=== PATIENT | female | born 1940 | race African-American/Black ===

== ENCOUNTER 2019-08-08 06:22 | Day surgery (SDC) | payer OTHER ==
[2019-08-07 16:48] VITALS: BMI 22.1
[2019-08-08] MEDS ORDERED: BUPIVACAINE HCL/PF 0.5% (5 MG/ML) 30 ML VIAL IJ ONE (07:17)
[2019-08-08] MEDS ORDERED: LIDOCAINE HCL 1%, 10 MG/ML (20ML VIAL) ONE ×2 (07:17→07:56)
[2019-08-08] MEDS ORDERED: MIDAZOLAM HCL 2 MG/2 ML SINGLE DOSE VIAL ONE (07:30)
[2019-08-08] MEDS ORDERED: SUCCINYLCHOLINE CHLORIDE 200 MG/10 ML SYRINGE ONE (07:30)
[2019-08-08] MEDS ORDERED: LIDOCAINE HCL/PF 2% SDV 5ML VIAL ONE (07:31)
[2019-08-08] MEDS ORDERED: ceFAZolin SODIUM 1 GM VIAL ONE (07:31)
[2019-08-08] MEDS ORDERED: PROPOFOL 20 ML ONE ×2 (07:31)
[2019-08-08] MEDS ORDERED: SODIUM CHLORIDE 0.9% P/F 10 ML VIAL IJ ONE (07:31)
[2019-08-08] MEDS ORDERED: ePHEDrine SULFATE 50 MG/1 ML AMPULE ONE (07:33)
--- NOTE | 2019-08-08 08:04 | HP ---
[facility] - Chief Complaint Chief Complaint: right hand pain, numbness - Past Medical History Allergies/Adverse Reactions: Allergies Allergy/AdvReac Type Severity Reaction Status Date / Time No Known Allergies Allergy Verified 08/08/19 07:17 - Current Medications Current Medications: Home Medications Medication Instructions Recorded NK [No Known Home Medication] 08/07/19 [facility] Physical Exam - Physical Examination Vital Signs: Vital Signs Period Temp Pulse Resp BP Sys/Cabello Pulse Ox Last 24 Hr 98.0 F-98.0 F 92-92 20-20 134-134/77-77 96 General Appearance: Well Nourished, Well Developed, Alert & Oriented x3 ENT: Clear Lung: Normal air movement Extremities: Other (right hand- + tinels , + phalens, emg + cts) Neurological: Intact, Alert, Oriented [facility] Impression/Plan - Impression/Plan Impression: right cts Operative Procedure: right ctr Date to be Performed: 08/08/19
[2019-08-08] MEDS ORDERED: ceFAZolin 2 GRAM PREMIX BAG IVPB ONE (08:28)
[2019-08-08] MEDS ORDERED: oxyCODONE HCL 5 MG TABLET PO PRN (08:29)
[2019-08-08] MEDS ORDERED: ONDANSETRON 4 MG/2 ML VIAL IVPUSH PRN (08:29)
[2019-08-08] MEDS ORDERED: BUPIVACAINE HCL 0.5% 250 MG/50 ML VIAL IJ ONE ×2 (08:38)
[2019-08-08] MEDS ORDERED: LIDOCAINE HCL 1%, 10 MG/ML (20ML VIAL) NR ONE ×2 (08:38)
--- NOTE | 2019-08-08 09:08 | OP ---
Operative Note - Note: Operative Date: 08/08/19 Pre-Operative Diagnosis: right CTS Operation: right CTR, tenosynovectomy Post-Operative Diagnosis: Same as Pre-op Surgeon: Alexander Enciso Anesthesiologist/HOME HEALTH BILLING SPECIALIST: Tony Goodman Anesthesia: Local, MAC Specimens Removed: tenosynovium Estimated Blood Loss (mls): 0 Drains, Volume Out (mls): 0 Blood Volume Replaced (mls): 0 Fluid Volume Replaced (mls): 500 Operative Report Dictated: Yes
--- NOTE | 2019-08-08 09:42 | SPEC ---
DATE OF OPERATION: 08/08/2019 PREOPERATIVE DIAGNOSIS: Right carpal tunnel syndrome. POSTOPERATIVE DIAGNOSIS: Right carpal tunnel syndrome. PROCEDURE: Right carpal tunnel release and tenosynovectomy. SURGEON: Alexander Enicso MD ASSISTANTS: None. ANESTHESIOLOGIST: Tony Goodman CRNA ANESTHESIA: MAC anesthesia, local injection of 15 mL 0.5% Marcaine and 1% lidocaine mix. DRAINS: None. COMPLICATIONS: None. SPECIMEN: Tenosynovium, right wrist. BLOOD LOSS: None. BLOOD GIVEN: None. FLUID REPLACEMENT: 500 mL. This patient is a 78-year-old female with preoperative diagnosis of right carpal tunnel syndrome. She is on dialysis. She has some uremia. She understands that part of her problems are from the compression of the nerve and part are not, and therefore, whatever portion is not from compression of her nerve, she will not get relief. She completely understands realistic expectations postoperatively. DESCRIPTION OF PROCEDURE: The patient was brought to the operating room, peripheral IV placed and IV sedation given. Two grams of IV Ancef were given. The entire case was done under 3.8 loupe magnification. A tourniquet was applied to the right upper arm and the right upper extremity was prepped and draped in sterile fashion. The entire case was done under 3.8 loupe magnification. A marking pen was utilized to ryan out a longitudinal incision in an already existing skin crease. Twenty mL of 0.5% Marcaine mixed with 1% Lidocaine was injected in and around the surgical incision. The right upper extremity was elevated, exsanguinated with an Esmarch bandage and the tourniquet inflated to 250 mmHg. A No. 15 scalpel blade was utilized to cut down through the skin. Subcutaneous hemostasis was achieved with the bipolar cautery. Dissection was done through the superficial palmar fascia. Self-retaining retractors were placed into the wound. Under direct visualization, the transverse carpal ligament was transected with a No. 15 scalpel blade, exposing the median nerve and the contents of the carpal tunnel. The distal and proximal extents of the release were completed with a Littler scissor and checked with irrigation and my small finger. They were seen to be complete. Limited dissection was done on the radial side of the median nerve and more extensive dissection was done on the ulnar side of the median nerve. The patients nerve was seen to be quite compressed by epineurium and therefore a limited epineurotomy was performed. A Ragnell retractor was used to gently retract the median nerve in a radial direction. The patient had a lot of tenosynovitis and therefore a tenosynovectomy was performed off all 9 flexor tendons. This was passed off the field as tenosynovium, right wrist. The floor of the carpal tunnel was checked. There were no abnormal masses or ganglion cysts. The area was copiously irrigated and washed out and closure begun. Undyed 4-0 Vicryl was used to close the deep dermal layer. Final skin reapproximation was done with horizontal mattress 4-0 nylon sutures. The area was then washed and dried, covered with Xeroform, 4x4s, fluffs between the fingers, Webril and a 4-inch plaster roll was utilized to make a volar splint, which was then wrapped with Micah and Coban. The tourniquet was taken down after a total tourniquet time of 18 minutes. There were no complications during the case. The patient tolerated the procedure well and was brought to the ambulatory recovery room in stable condition. Vic [id number]
[2019-08-08 13:48] VITALS: BP 141/66; PULSE 87; TEMP 97.6
--- NOTE | 2019-08-13 14:17 | PATH ---
Surgical Pathology Report Patient Name: PAUL ROBLES [facility]. Rec. #: [id number] /Age/Gender: 1940 (Age: 78) / F Account: [id number] Location: [facility] SURGICAL Taken: 08/08/2019 Received: 08/08/2019 Reported: 08/13/2019 Physicians: Alexander Enciso M.D. Specimen(s) Received RIGHT HAND TENOSYNOVIUM Clinical History Right carpal tunnel syndrome Final Diagnosis TENOSYNOVIUM, RIGHT HAND, RELEASE: TENOSYNOVIUM. Electronically Signed Deloris Ramirez M.D. Gross Description Received in formalin labeled "right hand tenosynovium," is a 1.7 x 1.3 x 0.2 cm aggregate of dahl-yellow portions of soft tissue, consistent with tenosynovium. The specimen is submitted in toto in one cassette. 08/08/201908/08/2019
== END 2019-08-08 11:30 | disposition home or self-care (01) ==
LOC: JASU-SURG 06:22
PROVIDERS: ATTEND Orthopaedic Surgery
PROC: 0LB50ZZ Excision of Right Lower Arm and Wrist Tendon, Open Approach (ICD-10-PCS; 2019-08-08)
PROC: 0LB50ZZ Excision of Right Lower Arm and Wrist Tendon, Open Approach (ICD-10-PCS; 2019-08-08)
PROC: 0LB50ZZ Excision of Right Lower Arm and Wrist Tendon, Open Approach (ICD-10-PCS; 2019-08-08)
PROC: 0LB50ZZ Excision of Right Lower Arm and Wrist Tendon, Open Approach (ICD-10-PCS; 2019-08-08)
PROC: 0LB50ZZ Excision of Right Lower Arm and Wrist Tendon, Open Approach (ICD-10-PCS; 2019-08-08)
PROC: 0LB50ZZ Excision of Right Lower Arm and Wrist Tendon, Open Approach (ICD-10-PCS; 2019-08-08)
PROC: 0LB50ZZ Excision of Right Lower Arm and Wrist Tendon, Open Approach (ICD-10-PCS; 2019-08-08)
PROC: 0LB50ZZ Excision of Right Lower Arm and Wrist Tendon, Open Approach (ICD-10-PCS; 2019-08-08)
PROC: 0LB50ZZ Excision of Right Lower Arm and Wrist Tendon, Open Approach (ICD-10-PCS; 2019-08-08)
PROC: 01N50ZZ Release Median Nerve, Open Approach (ICD-10-PCS; principal; 2019-08-08 08:00)
DX: G56.01 Carpal tunnel syndrome, right upper limb (principal); M65.9 Synovitis and tenosynovitis, unspecified
CPT/HCPCS: 36415; 84132; 88304-TC